=== PATIENT | female | born 1990 | race Caucasian/White ===

== ENCOUNTER 2018-09-22 17:50 | Emergency (ER) | payer SELFPAY ==
[2018-09-22] MEDS ORDERED: KETOROLAC TROMETHAMINE 60 MG/2 ML SDV IM ONE (19:36)
--- NOTE | 2018-09-22 19:40 | ER Document Report ---
ED General - General Chief Complaint: Flank Pain Stated Complaint: POSSIBLE KIDNEY STONE Time Seen by Provider: 09/22/18 19:23 Mode of Arrival: Ambulatory Information source: Patient TRAVEL OUTSIDE OF THE [place] IN LAST 30 DAYS: No - HPI Notes: 27 yr old female presents for right nephrolithiasis after she obtained a CT yesterday due to having flank pain, showed a 4 mm nonobstructive stone without hydronephrosis, was told by her provider at [facility] in [place] that she needs very to come to the ER since she has a kidney stone today when the results were given. No lab work or urinalysis was obtained at her pcp's office. States pain is 5 out of 10, sharp shooting intermittent. eating/drinking without issues. lmp september 11 2018. Patient states she was not giving any medications at her primary care office yesterday. Was just advised to come to the ER for further evaluation. Denies any fevers or chills. exam: R cva tenderness, no abd tenderness, s1 s2 regular, lungs cta. Ct resolved from primary care office in chart with read. labs obtained as well as urinalysis, patient given 60 mg Toradol IM, if labs are normal, patient be discharged home with appropriate nephrolithiasis outpatient management as well as following up with leather cleaner and primary care provider within the next 3 days I have greeted and performed a rapid initial assessment of this patient. A comprehensive ED assessment and evaluation of the patient, analysis of test results and completion of medical decision making process will be conducted by an additional ED providers. - Related Data Allergies/Adverse Reactions: No Known Allergies Allergy (Unverified 09/22/18 18:10) Past Medical History - Social History Smoking Status: Never Smoker Frequency of alcohol use: None Drug Abuse: None Patient has suicidal ideation: No Patient has homicidal ideation: No Renal/ Medical History: Denies: Hx Peritoneal Dialysis Physical Exam - Vital signs Vitals: Temp Pulse Resp BP Pulse Ox 98.2 F 87 16 132/83 H 100 09/22/18 19:04 09/22/18 19:04 09/22/18 19:04 09/22/18 19:04 09/22/18 19:04 Course - Vital Signs Vital signs: Temp Pulse Resp BP Pulse Ox 98.2 F 87 16 132/83 H 100 09/22/18 19:04 09/22/18 19:04 09/22/18 19:04 09/22/18 19:04 09/22/18 19:04
--- NOTE | 2018-09-22 19:41 | ER Document Report ---
ED Medical Screen (RME) - General Chief Complaint: Flank Pain Stated Complaint: POSSIBLE KIDNEY STONE Time Seen by Provider: 09/22/18 19:23 Mode of Arrival: Ambulatory TRAVEL OUTSIDE OF THE [place] IN LAST 30 DAYS: No - HPI Notes: 09/22/18 19:41 27 yr old female presents for right nephrolithiasis after she obtained a CT yesterday due to having flank pain, showed a 4 mm nonobstructive stone without hydronephrosis, was told by her provider at [facility] in [place] that she needs very to come to the ER since she has a kidney stone today when the results were given. No lab work or urinalysis was obtained at her pcp's office. States pain is 5 out of 10, sharp shooting intermittent. eating/drinking without issues. lmp september 11 2018. Patient states she was not giving any medications at her primary care office yesterday. Was just advised to come to the ER for further evaluation. Denies any fevers or chills. exam: R cva tenderness, no abd tenderness, s1 s2 regular, lungs cta. Ct resolved from primary care office in chart with read. labs obtained as well as urinalysis, patient given 60 mg Toradol IM, if labs are normal, patient be discharged home with appropriate nephrolithiasis outpatient management as well as following up with director of federal sales and primary care provider within the next 3 days I have greeted and performed a rapid initial assessment of this patient. A comprehensive ED assessment and evaluation of the patient, analysis of test results and completion of medical decision making process will be conducted by an additional ED providers. - Related Data Allergies/Adverse Reactions: No Known Allergies Allergy (Unverified 09/22/18 18:10) Past Medical History - Social History Frequency of alcohol use: None Drug Abuse: None Renal/ Medical History: Denies: Hx Peritoneal Dialysis Physical Exam - Vital signs Vitals: Temp Pulse Resp BP Pulse Ox 98.2 F 87 16 132/83 H 100 09/22/18 19:04 09/22/18 19:04 09/22/18 19:04 09/22/18 19:04 09/22/18 19:04 Course - Vital Signs Vital signs: Temp Pulse Resp BP Pulse Ox 98.2 F 87 16 132/83 H 100 09/22/18 19:04 09/22/18 19:04 09/22/18 19:04 09/22/18 19:04 09/22/18 19:04
[2018-09-22 20:14] LABS: APPEARANCE,URINE SLIGHTLY-CLOUDY; BILIRUBIN,URINE NEGATIVE (NEGATIVE); COLOR,URINE YELLOW; GLUCOSE, URINE NEGATIVE (NEGATIVE); KETONES,URINE 80 mg/dL (NEGATIVE); LEUKOCYTE ESTERASE,URINE TRACE (NEGATIVE); NITRITE,URINE NEGATIVE (NEGATIVE); PROTEIN,URINE 30 mg/dL (NEGATIVE); URINE SPECIFIC GRAVITY 1.018
[2018-09-22 20:35] LABS: ABSOLUTE BASOPHILS # (AUTO) 0.1 10^3/uL (0.0-0.2); ABSOLUTE LYMPHOCYTES (AUTO) 1.6 10^3/uL (0.5-4.7); ABSOLUTE NEUT (AUTO) 11.5 10^3/uL (1.7-8.2); BASOPHILS % (AUTO) 0.4 % (0-2); EOSINOPHILS % (AUTO) 0.2 % (0-6); HEMATOCRIT 39.1 % (36.0-47.0); HEMOGLOBIN 13.7 g/dL (12.0-15.5); LYMPHOCYTES % (AUTO) 11.2 % (13-45); MEAN CORPUSCULAR HEMOGLOBIN 30.1 pg (27.0-33.4); MEAN CORPUSCULAR VOLUME 86 fl (80-97); MONOCYTES % (AUTO) 6.9 % (3-13); PLATELET COUNT 277 10^3/uL (150-450); RED BLOOD COUNT 4.55 10^6/uL (3.72-5.28); RED CELL DISTRIBUTION WIDTH 12.7 % (11.5-14.0); SEGMENTED NEUTROPHILS % (AUTO) 81.3 % (42-78); TOTAL CELLS COUNTED % (AUTO) 100 %; WHITE BLOOD COUNT 14.2 10^3/uL (4.0-10.5)
[2018-09-22 20:49] LABS: ALANINE AMINOTRANSFERASE 22 U/L (9-52); ALBUMIN 4.3 g/dL (3.5-5.0); ALKALINE PHOSPHATASE 120 U/L (38-126); ANION GAP 11 (5-19); ASPARTATE AMINO TRANSFERASE 19 U/L (14-36); BILIRUBIN,DIRECT 0.2 mg/dL (0.0-0.4); BILIRUBIN,TOTAL 0.6 mg/dL (0.2-1.3); BLOOD UREA NITROGEN 12 mg/dL (7-20); CARBON DIOXIDE 25 mmol/L (22-30); CHLORIDE 102 mmol/L (98-107); GLUCOSE 89 mg/dL (75-110); POTASSIUM 4.1 mmol/L (3.6-5.0); SODIUM 137.7 mmol/L (137-145); TOTAL PROTEIN 7.7 g/dL (6.3-8.2)
--- NOTE | 2018-09-23 01:40 | ER Document Report ---
ED GI/ - General Chief Complaint: Flank Pain Stated Complaint: POSSIBLE KIDNEY STONE Time Seen by Provider: 09/22/18 19:23 Mode of Arrival: Ambulatory Information source: Patient Notes: Patient is a 27-year-old female comes emergency room complaining of right-sided flank pain. Patient went to a urgent care center yesterday explain her symptoms and they sent her to have a CT done outpatient. The report came back today and said the patient had a 4 mm stone in the distal right UVJ. The patient states that she was contacted by the urgent care center this morning and was told to come to the emergency room. She has no idea as to why she was told to come the emergency room she was given Toradol in the waiting room and patient has no pain now. She states her pain was rating about a 4 out of 10 but that has dissipated to 0 out of 10 now. She has had minimal nausea no vomiting. Patient has no history of kidney stones in the past. Patient denies any fever. She denies any shortness of breath or chest pain. She does state that she has no burning with urination he has no vaginal discharge no suprapubic tenderness. TRAVEL OUTSIDE OF THE [place] IN LAST 30 DAYS: No - HPI Patient complains to provider of: Abdominal pain, Flank pain. No: Dysuria Onset: Yesterday Timing/Duration: Sudden, Constant, Persistent, Better Quality of pain: Cramping, Sharp Severity at maximum: Severe Severity in ED: Mild Pain Level: 1 Location: RUQ, Right flank Vaginal bleeding (Compared to normal period): None Sexual history: Active Associated symptoms: None - Related Data Allergies/Adverse Reactions: No Known Allergies Allergy (Unverified 09/22/18 18:10) Past Medical History - General Information source: Patient - Social History Smoking Status: Never Smoker Cigarette use (# per day): No Chew tobacco use (# tins/day): No Smoking Education Provided: No Frequency of alcohol use: None Drug Abuse: None Lives with: Family Family History: Reviewed & Not Pertinent Patient has suicidal ideation: No Patient has homicidal ideation: No Renal/ Medical History: Denies: Hx Peritoneal Dialysis Review of Systems - Review of Systems Constitutional: No symptoms reported EENT: No symptoms reported Cardiovascular: No symptoms reported Respiratory: No symptoms reported Gastrointestinal: See HPI, Abdominal pain. denies: Abdomen distended, Diarrhea, Nausea, Constipation Genitourinary: See HPI, Flank pain Female Genitourinary: No symptoms reported Musculoskeletal: No symptoms reported Skin: No symptoms reported Hematologic/Lymphatic: No symptoms reported Neurological/Psychological: No symptoms reported -: Yes All other systems reviewed and negative Physical Exam - Vital signs Vitals: Temp Pulse Resp BP Pulse Ox 98.2 F 87 16 132/83 H 100 09/22/18 19:04 09/22/18 19:04 09/22/18 19:04 09/22/18 19:04 09/22/18 19:04 Interpretation: Normal, Hypertensive - Notes Notes: PHYSICAL EXAMINATION: GENERAL: Well-appearing, well-nourished and in no acute distress. HEAD: Atraumatic, normocephalic. EYES: Pupils equal round and reactive to light, extraocular movements intact, conjunctiva are normal. ENT: Nares patent, oropharynx clear without exudates. Moist mucous membranes. NECK: Normal range of motion, supple without lymphadenopathy LUNGS: Breath sounds clear to auscultation bilaterally and equal. No wheezes rales or rhonchi. HEART: Regular rate and rhythm without murmurs ABDOMEN: Examination patient's area of concern is her abdomen. On physical exam her abdomen shows she has just some mild tenderness to palpation of the right upper and lower quadrant areas mostly lower quadrant at the present time. Has positive right-sided flank pain tenderness to percussion but only again mildly. Patient is degree of pain and discomfort is reduced almost down to nothing.. Female : deferred Musculoskeletal: Normal range of motion, no pitting or edema. No cyanosis. NEUROLOGICAL: Normal speech, normal gait. Normal sensory, motor exams PSYCH: Normal mood, normal affect. SKIN: Warm, Dry, normal turgor, no rashes or lesions noted. - General General appearance: Appears well, Alert - HEENT Head: Normocephalic, Atraumatic Eyes: Normal Pupils: PERRL - Respiratory Respiratory status: No respiratory distress Chest status: Nontender Breath sounds: Normal Chest palpation: Normal - Cardiovascular Rhythm: Regular Heart sounds: Normal auscultation Murmur: No - Abdominal Inspection: Normal Distension: No distension Bowel sounds: Normal Tenderness: Nontender Organomegaly: No organomegaly - Back Back: Normal, Nontender - Extremities General upper extremity: Normal inspection, Nontender, Normal color, Normal ROM, Normal temperature General lower extremity: Normal inspection, Nontender, Normal color, Normal ROM, Normal temperature, Normal weight bearing. No: Cheryl's sign - Neurological Neuro grossly intact: Yes Cognition: Normal Orientation: AAOx4 Waldo Coma Scale Eye Opening: Spontaneous Waldo Coma Scale Verbal: Oriented Behzad Coma Scale Motor: Obeys Commands Behzad Coma Scale Total: 15 Speech: Normal Motor strength normal: LUE, RUE, LLE, RLE Sensory: Normal - Psychological Associated symptoms: Normal affect, Normal mood - Skin Skin Temperature: Warm Skin Moisture: Dry Skin Color: Normal Course - Re-evaluation Re-evalutation: 09/23/18 01:48 Patient had a copy of her CT report that showed a 4 mm stone in the distal UVJ. This was a CT done on Friday patient received the results late Friday afternoon and it is currently now Friday morning after midnight. Patient states that they contacted her with the results sometime late this afternoon told her she needed to come to the emergency room. Patient states when she got her Toradol shot here in the emergency room she had no pain and is still has 0 pain since receiving it. She denies any recent nausea vomiting. She denies any dysuria. Patient states that she really does not know why they sent her here because her pain has been dissipating since yesterday. There is also a note of a echogenic lesion in the left ovary and just suggested an ultrasound follow-up which I discussed with the patient already as well. She understands she needs to see RODDING MACHINE TENDER to have this examined and the better or sooner if no chance of this being something major at her age is slim. We are currently going to treat patient with Toradol pills and I will write her for a couple of pain pills just in case the stone gives her more colic again later. Patient's white count was 14,000 however I think this is partially due to a reaction to the stone her urine was clean with the exception of 1 WBC. So at this point I am not going to place patient on any antibiotics. - Vital Signs Vital signs: Temp Pulse Resp BP Pulse Ox 98.2 F 87 16 132/83 H 100 09/22/18 19:04 09/22/18 19:04 09/22/18 19:04 09/22/18 19:04 09/22/18 19:04 - Laboratory Result Diagrams: 09/22/18 20:19 09/22/18 20:19 Laboratory results interpreted by me: 09/22/18 09/22/18 19:37 20:19 WBC 14.2 H Seg Neutrophils % 81.3 H Lymphocytes % 11.2 L Absolute Neutrophils 11.5 H Urine Protein 30 H Urine Ketones 80 H Urine Blood LARGE H Urine Urobilinogen 2.0 H Ur Leukocyte Esterase TRACE H Discharge - Discharge Clinical Impression: Ureterolithiasis Disposition: HOME, SELF-CARE Instructions: Kidney Stone ([facility]) Additional Instructions: Home and rest. Medication as prescribed. As I indicated to you still need to follow-up with your poundmaster because of that questionable area on your CT report on the left ovary. I believe this to be a benign problem but it is one thing that they need to know about. As far as her kidney stone goes we do not have urology [facility] for the hospital but she may want to try [facility] urologist. They do have a local office here in town. I do not currently have their number. This is something he should probably establish with appear to be there for a while and have them examine you to see if they can find a cause of your kidney stones. Watch her diet as we discussed and return to ER if you have any concerns or problems. Prescriptions: Promethazine HCl [Phenergan 25 mg Tablet] 25 mg PO Q4HP PRN #20 tablet PRN Reason: Ketorolac Tromethamine [Toradol 10 mg Tablet] 10 mg PO Q6HP PRN #21 tablet PRN Reason: Hydrocodone/Acetaminophen [Casco 5-325 mg Tablet] 1 tab PO Q4 PRN #8 tablet PRN Reason: Forms: Elevated Blood Pressure
[2018-09-23 02:11] VITALS: BP 115/74
== END 2018-09-23 02:11 | disposition home or self-care (01) ==
LOC: ER 17:50
DX: N20.1 Calculus of ureter (principal); N83.9 Noninflammatory disorder of ovary, fallopian tube and broad ligament, unspecified; R10.9 Unspecified abdominal pain; R10.11 Right upper quadrant pain; R11.0 Nausea; R10.813 Right lower quadrant abdominal tenderness; R10.811 Right upper quadrant abdominal tenderness
CPT/HCPCS: 99284; 96372; 36415; 83690; 85025; 80053; 81001; J1885